=== PATIENT | male | born 1990 | race Caucasian/White ===

== ENCOUNTER 2019-12-20 14:40 | Emergency (ER) | payer OTHER ==
[~2019-12-20] VITALS: Ht 175.3 cm; Wt 93.1 kg
[2019-12-20 14:42] VITALS: BP 137/68
[2019-12-20] MEDS ORDERED: TRAM50TA2 PO ×2 (14:49→15:19)
== END 2019-12-20 15:25 | disposition home or self-care (01) ==
LOC: M ED 14:40
DX: Z76.0 Encounter for issue of repeat prescription (principal)

== ENCOUNTER → 2021-06-30 | Outpatient (CLI) | payer OTHER ==
[~2021-06-30] MED LIST: TRAM50TA2 PO
== END ==
LOC: M RAD 12:58
PROVIDERS: ATTEND Physician Assistant
DX: R05.9 Cough, unspecified (principal); R07.9 Chest pain, unspecified; J02.9 Acute pharyngitis, unspecified